=== PATIENT | male | born 1950 | race Caucasian/White ===

== ENCOUNTER 2020-12-25 20:14 | Inpatient (IN) | payer MEDICARE, OTHER ==
[~2020-12-25] VITALS: Ht 172.7 cm; Wt 83.4 kg
[2020-12-25 22:00] VITALS: BP 153/73
[2020-12-25] MEDS ORDERED: NITROGLYCERIN 0.4 MG SL TAB SL PRN (23:00)
[2020-12-25] MEDS ORDERED: HEPARIN DRIP/D5W 100UNITS/ML 250 ML IV SCH (23:00)
[2020-12-25] MEDS ORDERED: APIX5TAB PO (23:13)
[2020-12-25] MEDS ORDERED: SIMV-8 PO (23:13)
[2020-12-25] MEDS ORDERED: DOXY100C2 PO (23:13)
[2020-12-25] MEDS ORDERED: ASPI1TAB59 PO (23:13)
[2020-12-25] MEDS ORDERED: HYDR-4798 PO (23:13)
[2020-12-25] MEDS ORDERED: INSLANTI SC (23:17)
[2020-12-25] MEDS ORDERED: INSLISPI SC (23:17)
[2020-12-26] MEDS: HYDROcodone-ACET 10/325MG TAB PO PRN ×3 (00:23→20:01)
[2020-12-26] MEDS ORDERED: HEPARIN SODIUM (PORCINE) 5000 UNITS/ML 1ML VIAL IV ONE ×2 (00:45→11:15)
[2020-12-26] MEDS ORDERED: HEPARIN DRIP/D5W 100UNITS/ML 250 ML IV SCH ×2 (01:30→11:15)
[2020-12-26 02:14] VITALS: BP 153/73
[2020-12-26 02:20] LABS: INR 1.08 (0.9-1.15); Partial Thromboplastin Time 29.1 sec (23.0-31.2)
[2020-12-26 05:00] VITALS: BP 124/76
[2020-12-26 06:37] LABS: Basophils # (auto) 0.1 10 ^3/uL (0-0.2); Basophils % (auto) 0.9 % (0.0-2.0); Eosinophils # (auto) 0.3 10 ^3/uL (0-0.8); Eosinophils % (auto) 3.6 % (0.0-7.0); Hematocrit 42.3 % (41.0-53.0); Hemoglobin 14.4 g/dL (13.5-17.5); Lymphocytes # (auto) 2.3 10 ^3/uL (0.4-5.4); Mean Corpuscular Hemoglobin 29.4 pg (28.0-32.0); Mean Corpuscular Hgb Conc. 34.2 g/dL (32.0-36.0); Mean Corpuscular Volume 86.1 fL (80.0-100.0); Monocytes # (auto) 0.9 10 ^3/uL (0-1.3); Monocytes % (auto) 9.8 % (0.0-12.0); Neutrophils # (auto) 5.9 10 ^3/uL (1.6-8.6); Neutrophils % (auto) 61.7 % (37.0-80.0); Nucleated Red Blood Cells % 0.1 %; Red Blood Cells 4.91 10^6/uL (4.5-5.90); Red Cell Distribution Width 14.6 % (11.8-14.3); White Blood Cell 9.5 10^3/uL (4.4-10.8)
[2020-12-26] MEDS: INSULIN LISPRO (HUMAN) 100 UNITS/ML ML SC SCH ×4 (06:44→21:18)
[2020-12-26 06:53] LABS: INR 1.08 (0.9-1.15); Partial Thromboplastin Time 44.3 sec (23.0-31.2)
[2020-12-26 06:56] LABS: Albumin 3.1 g/dL (3.4-5.0); Potassium 4.5 mmol/L (3.5-5.1)
[2020-12-26 06:59] LABS: BUN/Creatinine Ratio 21.6; Bilirubin, Total 0.6 mg/dL (0.2-1.0); Total Protein 6.5 g/dL (6.4-8.2)
[2020-12-26 09:00] VITALS: BP 136/71
[2020-12-26 09:51] LABS: INR 1.06 (0.9-1.15); Partial Thromboplastin Time 26.3 sec (23.0-31.2)
[2020-12-26] MEDS ORDERED: INSULIN LANTUS (GLARGINE) 1 /0.01ml (100units/ml) SC SCH (10:00)
[2020-12-26 13:00] VITALS: BP 147/82
[2020-12-26 17:00] VITALS: BP 130/70
[2020-12-26 17:50] LABS: INR 1.05 (0.9-1.15); Partial Thromboplastin Time 64.5 sec (23.0-31.2)
[2020-12-26] MEDS: HEPARIN DRIP/D5W 100UNITS/ML 250 ML IV SCH (18:06)
[2020-12-26] MEDS: INSULIN LANTUS (GLARGINE) 1 /0.01ml (100units/ml) SC SCH (21:17)
[2020-12-26 22:00] VITALS: BP 137/73
[2020-12-26 23:39] LABS: Albumin 3.4 g/dL (3.4-5.0); BUN/Creatinine Ratio 23.6; Calcium 8.2 mg/dL (8.5-10.1); Potassium 4.3 mmol/L (3.5-5.1)
[2020-12-26 23:42] LABS: Bilirubin, Total 0.5 mg/dL (0.2-1.0); INR 1.05 (0.9-1.15); Partial Thromboplastin Time 59.4 sec (23.0-31.2); Total Protein 6.4 g/dL (6.4-8.2)
[2020-12-27] MEDS: HYDROcodone-ACET 10/325MG TAB PO PRN ×3 (02:31→22:41)
[2020-12-27 05:00] VITALS: BP 120/65
[2020-12-27] MEDS: INSULIN LISPRO (HUMAN) 100 UNITS/ML ML SC SCH ×4 (06:07→22:10)
[2020-12-27 06:25] LABS: INR 1.05 (0.9-1.15); Partial Thromboplastin Time 60.3 sec (23.0-31.2)
[2020-12-27 08:00] VITALS: BP 147/69
[2020-12-27] MEDS: INSULIN LANTUS (GLARGINE) 1 /0.01ml (100units/ml) SC SCH ×2 (08:18→22:10)
[2020-12-27 09:00] VITALS: BP 147/69
[2020-12-27] MEDS: cefTRIAXone 1GM/50ML D5W 50 ML IV SCH (09:33)
[2020-12-27 12:51] VITALS: BP 139/72
[2020-12-27] MEDS: HEPARIN DRIP/D5W 100UNITS/ML 250 ML IV SCH (13:00)
[2020-12-27 13:11] LABS: INR 1.08 (0.9-1.15); Partial Thromboplastin Time 57.1 sec (23.6-33.0)
[2020-12-27 16:40] VITALS: BP 101/43
[2020-12-27 20:16] LABS: INR 1.06 (0.9-1.15); Partial Thromboplastin Time 46.8 sec (23.6-33.0)
[2020-12-27] MEDS ORDERED: HEPARIN 1,000 UNITS/ml 1ML VIAL IV ONE (22:15)
[2020-12-27 22:38] VITALS: BP 146/73
[2020-12-28] MEDS: HEPARIN DRIP/D5W 100UNITS/ML 250 ML IV SCH ×2 (04:40→21:49)
[2020-12-28] MEDS: HYDROcodone-ACET 10/325MG TAB PO PRN ×2 (04:41→14:33)
[2020-12-28 05:00] VITALS: BP 132/75
[2020-12-28 05:41] LABS: Basophils # (auto) 0.1 10 ^3/uL (0-0.2); Basophils % (auto) 0.7 % (0.0-2.0); Eosinophils # (auto) 0.3 10 ^3/uL (0-0.8); Eosinophils % (auto) 2.7 % (0.0-7.0); Hematocrit 43.2 % (41.0-53.0); Hemoglobin 15.1 g/dL (13.5-17.5); Lymphocytes # (auto) 2.3 10 ^3/uL (0.4-5.4); Lymphocytes % (auto) 24.1 % (10.0-50.0); Mean Corpuscular Hemoglobin 30.2 pg (28.0-32.0); Mean Corpuscular Hgb Conc. 35.1 g/dL (32.0-36.0); Mean Corpuscular Volume 86.1 fL (80.0-100.0); Monocytes % (auto) 10.5 % (0.0-12.0); Nucleated Red Blood Cells % 0.1 %; Red Blood Cells 5.01 10^6/uL (4.5-5.90); Red Cell Distribution Width 14.4 % (11.8-14.3); White Blood Cell 9.6 10^3/uL (4.4-10.8)
[2020-12-28 05:54] LABS: Albumin 3.3 g/dL (3.4-5.0); Calcium 8.4 mg/dL (8.5-10.1); Potassium 4.2 mmol/L (3.5-5.1)
[2020-12-28 05:58] LABS: INR 1.08 (0.9-1.15); Partial Thromboplastin Time 73.5 sec (23.6-33.0)
[2020-12-28 05:59] LABS: BUN/Creatinine Ratio 18.9; Bilirubin, Total 0.6 mg/dL (0.2-1.0); Total Protein 6.8 g/dL (6.4-8.2)
[2020-12-28] MEDS: INSULIN LISPRO (HUMAN) 100 UNITS/ML ML SC SCH ×4 (06:42→21:51)
[2020-12-28] MEDS: INSULIN LANTUS (GLARGINE) 1 /0.01ml (100units/ml) SC SCH ×2 (08:10→21:50)
[2020-12-28] MEDS: cefTRIAXone 1GM/50ML D5W 50 ML IV SCH (08:36)
[2020-12-28 09:00] VITALS: BP 152/78
[2020-12-28 12:11] LABS: INR 1.11 (0.9-1.15); Partial Thromboplastin Time 63.2 sec (23.6-33.0)
[2020-12-28 13:00] VITALS: BP 126/48
[2020-12-28 17:00] VITALS: BP 126/62
[2020-12-28 19:16] LABS: INR 1.09 (0.9-1.15); Partial Thromboplastin Time 63.5 sec (23.6-33.0)
[2020-12-28 22:00] VITALS: BP 113/66
[2020-12-28] MEDS ORDERED: MAGNESIUM CITRATE SOLUTION 300 ML BTL PO ONE (22:30)
[2020-12-29] MEDS: HYDROcodone-ACET 10/325MG TAB PO PRN ×3 (00:23→23:42)
[2020-12-29 05:00] VITALS: BP 123/58
[2020-12-29 05:52] LABS: Basophils # (auto) 0.1 10 ^3/uL (0-0.2); Basophils % (auto) 0.6 % (0.0-2.0); Eosinophils # (auto) 0.4 10 ^3/uL (0-0.8); Eosinophils % (auto) 3.9 % (0.0-7.0); Hematocrit 45.4 % (41.0-53.0); Hemoglobin 15.7 g/dL (13.5-17.5); Lymphocytes # (auto) 2.6 10 ^3/uL (0.4-5.4); Lymphocytes % (auto) 27.9 % (10.0-50.0); Mean Corpuscular Hemoglobin 30.2 pg (28.0-32.0); Mean Corpuscular Hgb Conc. 34.5 g/dL (32.0-36.0); Mean Corpuscular Volume 87.5 fL (80.0-100.0); Monocytes # (auto) 1.1 10 ^3/uL (0-1.3); Monocytes % (auto) 12.2 % (0.0-12.0); Neutrophils # (auto) 5.2 10 ^3/uL (1.6-8.6); Neutrophils % (auto) 55.4 % (37.0-80.0); Nucleated Red Blood Cells % 0.2 %; Red Blood Cells 5.19 10^6/uL (4.5-5.90); Red Cell Distribution Width 14.4 % (11.8-14.3); White Blood Cell 9.3 10^3/uL (4.4-10.8)
[2020-12-29 06:06] LABS: INR 1.5 (0.9-1.15); Partial Thromboplastin Time 57.2 sec (23.6-33.0)
[2020-12-29 06:15] LABS: Albumin 3.2 g/dL (3.4-5.0); Calcium 8.6 mg/dL (8.5-10.1); Potassium 4.4 mmol/L (3.5-5.1)
[2020-12-29 06:18] LABS: Bilirubin, Total 0.5 mg/dL (0.2-1.0); Total Protein 6.9 g/dL (6.4-8.2)
[2020-12-29] MEDS: INSULIN LISPRO (HUMAN) 100 UNITS/ML ML SC SCH ×4 (06:31→22:22)
[2020-12-29] MEDS ORDERED: HEPARIN 1,000 UNITS/ml 1ML VIAL IV ONE (07:45)
[2020-12-29] MEDS: HEPARIN DRIP/D5W 100UNITS/ML 250 ML IV SCH ×3 (07:58→19:00)
[2020-12-29] MEDS: INSULIN LANTUS (GLARGINE) 1 /0.01ml (100units/ml) SC SCH ×2 (08:08→20:13)
[2020-12-29] MEDS: cefTRIAXone 1GM/50ML D5W 50 ML IV SCH (08:35)
[2020-12-29 09:00] VITALS: BP 125/55
[2020-12-29 13:00] VITALS: BP 135/69
[2020-12-29 15:25] LABS: INR 1.05 (0.9-1.15); Partial Thromboplastin Time 67.2 sec (23.6-33.0)
[2020-12-29 17:00] VITALS: BP 134/55
[2020-12-29] MEDS: SOD CHL 0.45% 1,000 ML IV SCH (20:35)
[2020-12-29 21:50] LABS: INR 1.06 (0.9-1.15); Partial Thromboplastin Time 66.1 sec (23.6-33.0)
[2020-12-29 22:00] VITALS: BP 147/68
[2020-12-30 04:36] LABS: Basophils # (auto) 0.1 10 ^3/uL (0-0.2); Basophils % (auto) 0.7 % (0.0-2.0); Eosinophils # (auto) 0.4 10 ^3/uL (0-0.8); Eosinophils % (auto) 3.6 % (0.0-7.0); Hematocrit 45.2 % (41.0-53.0); Hemoglobin 15.4 g/dL (13.5-17.5); Lymphocytes # (auto) 2.6 10 ^3/uL (0.4-5.4); Lymphocytes % (auto) 26.4 % (10.0-50.0); Mean Corpuscular Hemoglobin 29.3 pg (28.0-32.0); Mean Corpuscular Hgb Conc. 34.1 g/dL (32.0-36.0); Mean Corpuscular Volume 85.8 fL (80.0-100.0); Monocytes # (auto) 1.1 10 ^3/uL (0-1.3); Monocytes % (auto) 11.6 % (0.0-12.0); Neutrophils # (auto) 5.7 10 ^3/uL (1.6-8.6); Neutrophils % (auto) 57.7 % (37.0-80.0); Nucleated Red Blood Cells % 0.1 %; Red Blood Cells 5.27 10^6/uL (4.5-5.90); Red Cell Distribution Width 14.4 % (11.8-14.3); White Blood Cell 9.8 10^3/uL (4.4-10.8)
[2020-12-30 05:00] VITALS: BP 144/68
[2020-12-30 05:00] LABS: INR 1.08 (0.9-1.15)
[2020-12-30 05:19] LABS: Partial Thromboplastin Time 87.1 sec (23.6-33.0)
[2020-12-30] MEDS ORDERED: APIXABAN 5 MG TAB PO SCH (06:00)
[2020-12-30] MEDS: INSULIN LISPRO (HUMAN) 100 UNITS/ML ML SC SCH ×3 (06:46→17:00)
[2020-12-30] MEDS: HEPARIN DRIP/D5W 100UNITS/ML 250 ML IV SCH (06:53)
[2020-12-30] MEDS: cefTRIAXone 1GM/50ML D5W 50 ML IV SCH (08:58)
[2020-12-30] MEDS: HYDROcodone-ACET 10/325MG TAB PO PRN (08:59)
[2020-12-30 09:00] VITALS: BP 130/69
[2020-12-30] MEDS: INSULIN LANTUS (GLARGINE) 1 /0.01ml (100units/ml) SC SCH (09:05)
[2020-12-30] MEDS: SOD CHL 0.45% 1,000 ML IV SCH (09:24)
[2020-12-30] MEDS ORDERED: FUROSEMIDE 20 MG/2 ML VIAL IV ONE (11:15)
[2020-12-30 12:20] LABS: Albumin 3.4 g/dL (3.4-5.0); Calcium 8.6 mg/dL (8.5-10.1); Potassium 4.9 mmol/L (3.5-5.1)
[2020-12-30 12:24] LABS: Bilirubin, Total 0.6 mg/dL (0.2-1.0); Total Protein 7.1 g/dL (6.4-8.2)
[2020-12-30 12:54] VITALS: BP 142/74
[2020-12-30 15:55] VITALS: BP 142/65
[2020-12-30 16:59] VITALS: BP 150/76
== END 2020-12-30 15:20 | disposition home or self-care (01) | DRG 300 ==
LOC: TELE-WESTW 20:14
PROVIDERS: ADMIT Specialist; ATTEND Specialist
DX: I82.411 Acute embolism and thrombosis of right femoral vein (principal); L03.115 Cellulitis of right lower limb; E86.1 Hypovolemia; E88.81 Metabolic syndrome and other insulin resistance; N40.0 Benign prostatic hyperplasia without lower urinary tract symptoms; E11.65 Type 2 diabetes mellitus with hyperglycemia; K59.00 Constipation, unspecified; Z20.822 Contact with and (suspected) exposure to COVID-19; E66.09 Other obesity due to excess calories; Z86.718 Personal history of other venous thrombosis and embolism; Z68.27 Body mass index [BMI] 27.0-27.9, adult
CPT/HCPCS: 36415; 71045; 71250; 74176; 80053; 82962; 83036; 85025; 85301; 85302; 85305; 85306; 85379; 85610; 85613; 85670; 85705; 85730; 85732; 87426; 93971; G0378; J0696; J1815

== ENCOUNTER 2023-07-31 17:17 | Inpatient (IN) | payer MEDICARE, OTHER ==
[~2023-07-31] VITALS: Ht 170.2 cm; Wt 93.7 kg
[~2023-07-31 17:17] MED LIST: APIX5TAB PO; ASPI1TAB59 PO; HYDR-4798 PO; INSLANTI SC; INSLISPI SC; SIMV20TA20 PO
[2023-07-31 18:00] VITALS: BP 152/67; PULSE 61; RESP 20; TEMP 98.1; O2SAT 94
[2023-07-31] MEDS ORDERED: PANT40T PO (18:26)
[2023-07-31] MEDS ORDERED: INSU100I4 SC (18:26)
[2023-07-31] MEDS ORDERED: INSUINJ37 SC (18:26)
[2023-07-31] MEDS ORDERED: VALS1TAB58 PO (18:26)
[2023-07-31] MEDS ORDERED: INSU100I54 SC (18:26)
[2023-07-31] MEDS ORDERED: APIX5TAB PO (18:28)
[2023-07-31 20:00] VITALS: PULSE 55; RESP 18; O2SAT 97
[2023-07-31] MEDS ORDERED: MORPHINE SULFATE INJ 2 MG/ml SYRG IV PRN (20:00)
[2023-07-31] MEDS ORDERED: NITROGLYCERIN 0.4 MG SL TAB SL PRN (20:00)
[2023-07-31] MEDS ORDERED: HYDROcodone-ACET 10/325MG TAB PO PRN (20:00)
[2023-07-31] MEDS ORDERED: HEPARIN SODIUM (PORCINE) 5000 UNITS/ML 1ML VIAL IV ONE ×2 (20:15)
[2023-07-31] MEDS: ACCU-CHEK COMFORT CURVE STRIP VI SCH (21:45)
[2023-07-31 21:53] LABS: Basophils # (auto) 0.1 10 ^3/uL (0-0.2); Eosinophils # (auto) 0.4 10 ^3/uL (0-0.8); Eosinophils % (auto) 3.9 % (0.0-7.0); Hematocrit 50.5 % (41.0-53.0); Hemoglobin 16.6 g/dL (13.5-17.5); Lymphocytes # (auto) 2.3 10 ^3/uL (0.4-5.4); Lymphocytes % (auto) 20.6 % (10.0-50.0); Mean Corpuscular Hgb Conc. 32.9 g/dL (32.0-36.0); Mean Corpuscular Volume 88.3 fL (80.0-100.0); Monocytes # (auto) 1.1 10 ^3/uL (0-1.3); Monocytes % (auto) 9.8 % (0.0-12.0); Neutrophils # (auto) 7.3 10 ^3/uL (1.6-8.6); Neutrophils % (auto) 64.7 % (37.0-80.0); Nucleated Red Blood Cells % 0.2 %; Red Blood Cells 5.72 10^6/uL (4.5-5.90); White Blood Cell 11.2 10^3/uL (4.4-10.8)
[2023-07-31] MEDS: INSULIN LANTUS (GLARGINE) 1 /0.01ml (100units/ml) SC SCH (21:53)
[2023-07-31] MEDS: INSULIN LISPRO (HUMAN) 100 UNITS/ML ML SC SCH (21:54)
[2023-07-31] MEDS: ATORVASTATIN 20 MG TAB PO SCH (21:59)
[2023-07-31 22:00] VITALS: BP 136/57; PULSE 54; RESP 18; TEMP 97.8; O2SAT 97
[2023-07-31 22:10] LABS: Alanine Aminotransferase 25 U/L (7-40); Albumin 4.1 g/dL (3.2-4.8); Alkaline Phosphatase 84 U/L (46-116); Anion Gap 5 (5-15); Aspartate Aminotransferase 23 U/L (13-40); BUN/Creatinine Ratio 14.3 (10.0-20.0); Blood Urea Nitrogen 16 mg/dL (9-23); Carbon Dioxide 23 mmol/L (20-30); Chloride 112 mmol/L (98-107); Cholesterol 116 mg/dL (< 200); Glucose 102 mg/dL (74-106); HDL Cholesterol 29 mg/dL (40-59); LDL Cholesterol 82 mg/dL (< 100); Sodium 140 mmol/L (136-145); Triglycerides 81 mg/dL (< 150)
[2023-07-31 22:11] LABS: Bilirubin, Total 0.8 mg/dL (0.2-1.0); Partial Thromboplastin Time 30.2 SEC (24.5-34.5); Phosphorus 3.3 mg/dL (2.4-5.1); Prothrombin Time 11.5 sec (9.3-11.8)
[2023-07-31] MEDS: HEPARIN SODIUM (PORCINE) 5000 UNITS/ML 1ML VIAL IV ONE (22:55)
[2023-07-31] MEDS: HEPARIN DRIP/D5W 100UNITS/ML 250 ML IV SCH (23:01)
[2023-08-01] VITALS (7 sets, daily range): BP systolic 116–152; BP diastolic 54–77; PULSE 56–59; RESP 17–20; TEMP 97.7–98.9; O2SAT 92–96
[2023-08-01 05:46] LABS: Basophils # (auto) 0 10 ^3/uL (0-0.2); Basophils % (auto) 0.3 % (0.0-2.0); Eosinophils # (auto) 0.5 10 ^3/uL (0-0.8); Eosinophils % (auto) 4.7 % (0.0-7.0); Hematocrit 49.7 % (41.0-53.0); Hemoglobin 16.6 g/dL (13.5-17.5); Lymphocytes # (auto) 2.1 10 ^3/uL (0.4-5.4); Lymphocytes % (auto) 21.3 % (10.0-50.0); Mean Corpuscular Hemoglobin 29.4 pg (28.0-32.0); Mean Corpuscular Hgb Conc. 33.5 g/dL (32.0-36.0); Mean Corpuscular Volume 87.8 fL (80.0-100.0); Monocytes # (auto) 0.8 10 ^3/uL (0-1.3); Neutrophils # (auto) 6.3 10 ^3/uL (1.6-8.6); Neutrophils % (auto) 65.7 % (37.0-80.0); Nucleated Red Blood Cells % 0.3 %; Red Blood Cells 5.66 10^6/uL (4.5-5.90); White Blood Cell 9.7 10^3/uL (4.4-10.8)
[2023-08-01 06:02] LABS: Alanine Aminotransferase 22 U/L (7-40); Albumin 3.7 g/dL (3.2-4.8); Alkaline Phosphatase 76 U/L (46-116); Anion Gap 7 (5-15); Aspartate Aminotransferase 18 U/L (13-40); Blood Urea Nitrogen 16 mg/dL (9-23); Calcium 8.9 mg/dL (8.7-10.4); Carbon Dioxide 21 mmol/L (20-30); Chloride 111 mmol/L (98-107); Glucose 75 mg/dL (74-106); Potassium 4.1 mmol/L (3.5-5.1); Sodium 139 mmol/L (136-145)
[2023-08-01 06:03] LABS: Bilirubin, Total 0.9 mg/dL (0.2-1.0); Total Protein 5.9 g/dL (5.7-8.2)
[2023-08-01 06:16] LABS: INR 1.18 (0.9-1.15); Prothrombin Time 12.3 sec (9.3-11.8)
[2023-08-01 06:20] LABS: Partial Thromboplastin Time > 139.0 SEC (24.5-34.5)
[2023-08-01] MEDS: HEPARIN DRIP/D5W 100UNITS/ML 250 ML IV SCH ×2 (07:30→16:35)
[2023-08-01] MEDS: ASPirin-EC 325mg tab PO SCH (09:26)
[2023-08-01] MEDS: PANTOPRAZOLE 40 MG TAB PO SCH (09:26)
[2023-08-01] MEDS: VALSARTAN 80 MG TAB PO SCH (09:27)
[2023-08-01 14:33] LABS: INR 1.14 (0.9-1.15); Prothrombin Time 11.9 sec (9.3-11.8)
[2023-08-01 14:45] LABS: Partial Thromboplastin Time 95.3 SEC (24.5-34.5)
[2023-08-01 22:48] LABS: INR 1.14 (0.9-1.15); Prothrombin Time 11.9 sec (9.3-11.8)
[2023-08-02] VITALS (7 sets, daily range): BP systolic 114–147; BP diastolic 61–79; PULSE 52–72; RESP 16–18; TEMP 97.6–98.9; O2SAT 94–97
[2023-08-02] MEDS: HEPARIN DRIP/D5W 100UNITS/ML 250 ML IV SCH ×3 (05:15→15:25)
[2023-08-02 06:13] LABS: INR 1.13 (0.9-1.15); Partial Thromboplastin Time 33.9 SEC (24.5-34.5); Prothrombin Time 11.8 sec (9.3-11.8)
[2023-08-02] MEDS: HEPARIN SODIUM (PORCINE) 5000 UNITS/ML 1ML VIAL IV ONE (06:46)
[2023-08-02 13:51] LABS: INR 1.18 (0.9-1.15); Prothrombin Time 12.3 sec (9.3-11.8)
[2023-08-02 14:12] LABS: Partial Thromboplastin Time > 139.0 SEC (24.5-34.5)
[2023-08-02 22:27] LABS: INR 1.16 (0.9-1.15); Prothrombin Time 12.1 sec (9.3-11.8)
[2023-08-02] MEDS: INSULIN LANTUS (GLARGINE) 1 /0.01ml (100units/ml) SC SCH (23:00)
[2023-08-03] VITALS (7 sets, daily range): BP systolic 121–146; BP diastolic 61–73; PULSE 54–71; RESP 16–19; TEMP 97.5–98.4; O2SAT 92–97
[2023-08-03 05:44] LABS: Basophils # (auto) 0.1 10 ^3/uL (0-0.2); Basophils % (auto) 0.7 % (0.0-2.0); Eosinophils # (auto) 0.4 10 ^3/uL (0-0.8); Eosinophils % (auto) 4.2 % (0.0-7.0); Hematocrit 50.2 % (41.0-53.0); Lymphocytes # (auto) 2.3 10 ^3/uL (0.4-5.4); Lymphocytes % (auto) 22.1 % (10.0-50.0); Mean Corpuscular Hemoglobin 29.6 pg (28.0-32.0); Mean Corpuscular Hgb Conc. 33.8 g/dL (32.0-36.0); Mean Corpuscular Volume 87.6 fL (80.0-100.0); Monocytes # (auto) 1.1 10 ^3/uL (0-1.3); Monocytes % (auto) 10.8 % (0.0-12.0); Neutrophils # (auto) 6.5 10 ^3/uL (1.6-8.6); Neutrophils % (auto) 62.2 % (37.0-80.0); Nucleated Red Blood Cells % 0.5 %; Red Blood Cells 5.73 10^6/uL (4.5-5.90); White Blood Cell 10.4 10^3/uL (4.4-10.8)
[2023-08-03 06:02] LABS: Alanine Aminotransferase 22 U/L (7-40); Alkaline Phosphatase 83 U/L (46-116); Anion Gap 4 (5-15); Aspartate Aminotransferase 19 U/L (13-40); BUN/Creatinine Ratio 14.8 (10.0-20.0); Bilirubin, Total 0.9 mg/dL (0.2-1.0); Blood Urea Nitrogen 18 mg/dL (9-23); Calcium 9.2 mg/dL (8.5-10.1); Carbon Dioxide 23 mmol/L (20-30); Chloride 108 mmol/L (98-107); Cholesterol 106 mg/dL (< 200); Glucose 101 mg/dL (74-106); HDL Cholesterol 30 mg/dL (40-59); LDL Cholesterol 64 mg/dL (< 100); Potassium 4.2 mmol/L (3.5-5.1); Sodium 135 mmol/L (136-145); Triglycerides 104 mg/dL (< 150)
[2023-08-03 09:45] LABS: INR 1.18 (0.9-1.15); Prothrombin Time 12.3 sec (9.3-11.8)
[2023-08-03 09:47] LABS: Partial Thromboplastin Time 127.2 SEC (24.5-34.5)
[2023-08-03] MEDS ORDERED: HEPARIN DRIP/D5W 100UNITS/ML 250 ML IV SCH (10:00)
[2023-08-03] MEDS: HEPARIN DRIP/D5W 100UNITS/ML 250 ML IV SCH (11:02)
[2023-08-03 17:49] LABS: INR 1.1 (0.9-1.15); Partial Thromboplastin Time 59.1 SEC (24.5-34.5); Prothrombin Time 11.5 sec (9.3-11.8)
[2023-08-04] VITALS (7 sets, daily range): BP systolic 120–138; BP diastolic 60–72; PULSE 59–82; RESP 16–18; TEMP 97.3–98.3; O2SAT 91–94
[2023-08-04 00:19] LABS: INR 1.13 (0.9-1.15); Prothrombin Time 11.8 sec (9.3-11.8)
[2023-08-04 00:22] LABS: Partial Thromboplastin Time 76.8 SEC (24.5-34.5)
[2023-08-04] MEDS ORDERED: HEPARIN DRIP/D5W 100UNITS/ML 250 ML IV SCH (00:45)
[2023-08-04] MEDS: HEPARIN DRIP/D5W 100UNITS/ML 250 ML IV SCH ×2 (00:53→14:45)
[2023-08-04 08:03] LABS: INR 1.16 (0.9-1.15); Partial Thromboplastin Time 69.9 SEC (24.5-34.5); Prothrombin Time 12.1 sec (9.3-11.8)
[2023-08-04] MEDS: ASPirin-EC 81 mg tab PO SCH (11:23)
[2023-08-04 14:33] LABS: INR 1.16 (0.9-1.15); Prothrombin Time 12.1 sec (9.3-11.8)
[2023-08-04 22:00] LABS: INR 1.14 (0.9-1.15); Partial Thromboplastin Time 55.6 SEC (24.5-34.5); Prothrombin Time 11.9 sec (9.3-11.8)
[2023-08-05] MEDS ORDERED: HEPARIN DRIP/D5W 100UNITS/ML 250 ML IV SCH (00:45)
[2023-08-05 05:00] VITALS: BP 115/60; PULSE 58; RESP 16; TEMP 98.2; O2SAT 97
[2023-08-05 06:24] LABS: Hematocrit 50.1 % (41.0-53.0); Hemoglobin 16.8 g/dL (13.5-17.5)
[2023-08-05] MEDS ORDERED: VALS1TAB57 PO (06:59)
[2023-08-05] MEDS ORDERED: INSUINJ37 SC (06:59)
[2023-08-05] MEDS: HEPARIN DRIP/D5W 100UNITS/ML 250 ML IV SCH (07:00)
[2023-08-05 08:00] VITALS: PULSE 56; RESP 18
[2023-08-05] MEDS: INSULIN LANTUS (GLARGINE) 1 /0.01ml (100units/ml) SC SCH (09:45)
[2023-08-05] MEDS ORDERED: PATIENTS OWN MEDICATION (ELIQUIS 5 MG) PO SCH (10:00)
[2023-08-05] MEDS: APIXABAN 5 MG TAB PO SCH (10:04)
== END 2023-08-05 11:45 | disposition home or self-care (01) | DRG 300 ==
LOC: TELE-WESTW 17:44 → UNDOADMIN 17:44 → TELE-WESTW 19:57
PROVIDERS: ADMIT Specialist; ATTEND Specialist
DX: I82.411 Acute embolism and thrombosis of right femoral vein (principal); D68.69 Other thrombophilia; E86.1 Hypovolemia; D75.1 Secondary polycythemia; E88.819 Insulin resistance, unspecified; I10 Essential (primary) hypertension; E66.09 Other obesity due to excess calories; E11.65 Type 2 diabetes mellitus with hyperglycemia; K21.9 Gastro-esophageal reflux disease without esophagitis; E11.42 Type 2 diabetes mellitus with diabetic polyneuropathy; I25.10 Atherosclerotic heart disease of native coronary artery without angina pectoris; Z91.198 Patient's noncompliance with other medical treatment and regimen for other reason; Z79.82 Long term (current) use of aspirin; Z79.4 Long term (current) use of insulin; Z79.899 Other long term (current) drug therapy; Z79.01 Long term (current) use of anticoagulants; Z79.84 Long term (current) use of oral hypoglycemic drugs; Z85.72 Personal history of non-Hodgkin lymphomas; Z86.718 Personal history of other venous thrombosis and embolism; Z80.1 Family history of malignant neoplasm of trachea, bronchus and lung; Z68.31 Body mass index [BMI] 31.0-31.9, adult
CPT/HCPCS: 36415; 80053; 80061; 82746; 82962; 83036; 83735; 84100; 85014; 85018; 85025; 85049; 85379; 85610; 85730; G0378; J1815